=== PATIENT | male | born 1955 | race Caucasian/White ===

== ENCOUNTER 2023-08-07 07:09 | Outpatient (CLI) | payer OTHER, SELFPAY ==
--- NOTE | ~2023-08-07 | US_ITS ---
EXAMINATION: US retroperitoneal comp DATE: 08/07/2023 07:53 INDICATION: Abdominal aortic aneurysm screening. TECHNIQUE: Grayscale, color Doppler, and pulsed Doppler images of the aorta and common iliac arteries were obtained. COMPARISON: None. FINDINGS: The aorta demonstrates a 3.0 cm fusiform aneurysm.. The right common iliac artery is normal in calibe r. The left common iliac artery is normal in caliber. IMPRESSION: 1. 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 Reviewed, dictated and finalized at location A.
== END 2023-08-07 07:10 ==
LOC: MICIMG 07:10
DX: I71.43 Infrarenal abdominal aortic aneurysm, without rupture (principal); Z13.6 Encounter for screening for cardiovascular disorders
CPT/HCPCS: 76770

== ENCOUNTER 2024-01-05 05:51 | Day surgery (SDC) | payer OTHER, SELFPAY ==
[2023-10-18 12:29] VITALS: BMI 22.7
[2023-12-20 13:58] VITALS: BMI 24.0
[2024-01-05 06:08] VITALS: BP 124/72; PULSE 60; RESP 18; TEMP 36.4; O2SAT 97
[2024-01-05 06:23] VITALS: BMI 21.4
--- NOTE | 2024-01-05 06:42 | P.PNAN_ITS ---
Anes - Initial Pre Proc Eval Procedure: Operation Date: 01/05/24 07:30 Proposed Procedures p Screening Colonoscopy - Jamar Koo MD Date/Time: 01/05/24 06:42 Surgeon: Jamar Koo MD Pre Op Diagnosis: Neoplasm screening Patient Data Age: 68 Gender: M Height: 1.88 m Weight: 76 kg Last Vital Signs Temp 36.4 C L 01/05/24 06:08 Pulse 60 01/05/24 06:08 Resp 18 01/05/24 06:08 BP 124/72 01/05/24 06:08 Pulse Ox 97 01/05/24 06:08 O2 Del Method Room Air 01/05/24 06:08 Allergies Allergy/AdvReac Type Severity Reaction Status Date / Time BISMUTH SUBSALICYLATE Allergy Severe Nausea and Uncoded 01/05/24 06:17 (Generic Allergy) Vomiting PEPTO BISMOL Allergy Severe Nausea and Uncoded 01/05/24 06:17 Vomiting Home Medications Medication Instructions Recorded Confirmed Type colesevelam 625 mg tablet 625 mg PO DAILY 01/13/23 01/05/24 History diltiazem HCl 240 mg 240 mg PO DAILY 01/13/23 01/05/24 History capsule,extended release 24 hr ezetimibe 10 mg tablet 10 mg PO DAILY 01/13/23 01/05/24 History losartan 100 1 tablet PO DAILY 01/13/23 01/05/24 History mg-hydrochlorothiazide 12.5 mg tablet oxybutynin chloride 10 mg 10 mg PO DAILY 01/13/23 01/05/24 History tablet,extended release 24 hr aspirin 81 mg tablet 81 mg PO DAILY 12/20/23 01/05/24 History Patient hx anesthesia problems: none Family hx anesthesia problems: none Results Review: All pre-operative results and documents have been reviewed as part of the pre- operative evaluation. [facility] Past Medical History Medical History (Updated 01/04/24 @ 11:27 by Gil Whitaker DO) GERD (gastroesophageal reflux disease) Hyperlipidemia Hypertension Social History Social History Smoking status: Never smoker Alcohol intake: never Alcohol use details: occassional Substance use: never Substance use type: does not use Living arrangements: alone Spiritual care concerns: No Anes - Eval Final PreProcedure Day of Procedure 01/05/24 06:42 Patient weight: normal Heart: regular rate and rhythm Lungs: clear to auscultation and normal air movement Airway: Mallampati scale class II Neurological: alert and oriented Last oral intake: >/= 8 hours ASA classification: II Emergent: no Anesthetic plan: proceed Anesthesia type and monitoring: general GIVS and standard monitoring Results Review: All pre-operative results and documents have been reviewed as part of the pre- operative evaluation. Informed Consent: The patient's anesthetic plan and its attendant risks and benefits were discussed with the patient/family/POA. Questions were solicited and answers provided to the satisfaction of the patient/family/POA.
[2024-01-05] MEDS: LACTATED RINGERS 1,000 ML 150 ML IV CONT (06:55)
--- NOTE | 2024-01-05 07:27 | PM.HPGS ---
History of Present Illness History of Present Illness Consent: Risks, benefits, and alternatives have been discussed and questions answered. Patient agrees to proceed with procedure. Chief complaint: Neoplasm screening Narrative: Baldev Segundo is a 68 year old male presents for screening colonoscopy. Patient's current weight appetite and bowel movements are normal. Patient denies abdominal pain. He has no bleeding. Family history is noncontributory. Patient reports previous colonoscopy 14 years ago was unremarkable. Patient does state that he is known to have an internal hemorrhoid but this is currently stable. Review of Systems Review of Systems: All systems reviewed & are unremarkable except as noted in HPI and below PMFSH Past Medical History Medical History (Updated 01/05/24 @ 07:29 by Jamar Koo MD) GERD (gastroesophageal reflux disease) Hyperlipidemia Hypertension Social History Social History Smoking status: Never smoker Alcohol intake: never Alcohol use details: occassional Substance use: never Substance use type: does not use Living arrangements: alone Spiritual care concerns: No Meds Home Medications and Allergies Home Medications Medication Instructions Recorded Confirmed Type colesevelam 625 mg tablet 625 mg PO DAILY 01/13/23 01/05/24 History diltiazem HCl 240 mg 240 mg PO DAILY 01/13/23 01/05/24 History capsule,extended release 24 hr ezetimibe 10 mg tablet 10 mg PO DAILY 01/13/23 01/05/24 History losartan 100 1 tablet PO DAILY 01/13/23 01/05/24 History mg-hydrochlorothiazide 12.5 mg tablet oxybutynin chloride 10 mg 10 mg PO DAILY 01/13/23 01/05/24 History tablet,extended release 24 hr aspirin 81 mg tablet 81 mg PO DAILY 12/20/23 01/05/24 History Allergies Allergy/AdvReac Type Severity Reaction Status Date / Time BISMUTH SUBSALICYLATE Allergy Severe Nausea and Uncoded 01/05/24 06:17 (Generic Allergy) Vomiting PEPTO BISMOL Allergy Severe Nausea and Uncoded 01/05/24 06:17 Vomiting Vital Signs Vital Signs - 24 hr 01/05/24 06:08 Temperature 97.5 F L Pulse Rate 60 Respiratory Rate 18 Blood Pressure 124/72 Pulse Oximetry 97 Oxygen Delivery Room Air Exam Narrative: Physical exam reveals pain stable. HEENT exam is unremarkable. Is are clear to auscultation and to percussion heart is without murmur or extra sounds. Abdomen bowel sounds are present soft nontender with no organomegaly. Digital external rectal exam normal. Assessment and Plan Assessment and plan (1) Screen for colon cancer: Code(s): Z12.11 - Encounter for screening for malignant neoplasm of colon Status: Acute Assessment and Plan: Patient presents today for neoplasia screening colonoscopy. He appears to be at average risk for colon polyps. Further recommendations may be given after endoscopy.
[2024-01-05 07:57] VITALS: BP 96/55; PULSE 43; RESP 16; O2SAT 96
--- NOTE | 2024-01-05 08:02 | WPDANESPN ---
Anes - Prog Note Post-Op Date/Time: 01/05/24 08:02 Cardiovascular status: normal Respiratory status: normal Airway patency: baseline Mental status: baseline Post-Op hydration status: normal Vital Signs: Last Vital Signs Temp 36.4 C L 01/05/24 06:08 Pulse 60 01/05/24 06:08 Resp 18 01/05/24 06:08 BP 124/72 01/05/24 06:08 Pulse Ox 97 01/05/24 06:08 O2 Del Method Room Air 01/05/24 06:08 Pain Score (VAS): 0 I/O: Intake & Output 01/04/24 01/05/24 01/05/24 23:59 07:59 15:59 Intake Total 400 Balance 400 Post-procedural complaints: none Patient Feedback: Patient satisfied with anesthetic care.
[2024-01-05 08:07] VITALS: BP 100/60; PULSE 44; RESP 16; O2SAT 96
[2024-01-05 08:17] VITALS: BP 105/67; PULSE 45; RESP 16; O2SAT 99
--- NOTE | 2024-01-05 08:29 | SUR.PHASEII ---
PT DRESSED AND WAITING FOR RIDE
== END 2024-01-05 08:34 | disposition home or self-care (01) ==
PROVIDERS: Visit Provider Internal Medicine Gastroenterology
PROC: 0DJD8ZZ Inspection of Lower Intestinal Tract, Via Natural or Artificial Opening Endoscopic (ICD-10-PCS; CPT 45378; principal; 2024-01-05 07:30)
DX: Z12.11 Encounter for screening for malignant neoplasm of colon (principal); D12.5 Benign neoplasm of sigmoid colon; K57.30 Diverticulosis of large intestine without perforation or abscess without bleeding; D12.2 Benign neoplasm of ascending colon; K64.8 Other hemorrhoids
CPT/HCPCS: 45385; 45380

== ENCOUNTER 2024-01-05 07:40 | Outpatient (NON) | payer OTHER, SELFPAY | END 2024-01-05 07:41 | disposition home or self-care (01) | LOC: ANHLAB 01-06 07:41 | PROVIDERS: Visit Provider Internal Medicine Gastroenterology | DX: Z12.11 Encounter for screening for malignant neoplasm of colon (principal); D12.2 Benign neoplasm of ascending colon; D12.5 Benign neoplasm of sigmoid colon | CPT/HCPCS: 88305 ==